=== PATIENT | female | born 1995 | race African-American/Black ===

== ENCOUNTER 2021-01-02 19:44 | Emergency (ER) | payer OTHER ==
[~2021-01-02] VITALS: Ht 154.9 cm; Wt 72.6 kg
--- NOTE | 2021-01-02 19:45 | NUR ---
Patient to ER bed ER Hallway to [facility] for evaluation. Side rails up.
--- NOTE | 2021-01-02 19:47 | NUR ---
Dr. Dutta chairside for pt eval
[2021-01-02 19:48] VITALS: BP_SYST 117
--- NOTE | 2021-01-02 19:51 | NUR ---
Pt BIB [employer] [facility] to ED seeking OK to book / med clearance. VSS no s/s of acute distress No other complaints noted Resting on ED Chair
[2021-01-02 20:10] VITALS: BP_SYST 117
--- NOTE | 2021-01-02 20:10 | NUR ---
Patient given written and verbal discharge instructions and verbalizes understanding. ER MD discussed with patient the results and treatment provided. Patient in stable condition. ID arm band removed. Patient educated on pain management and to follow up with PMD. Pain Scale 0/10 Opportunity for questions provided and answered.
== END 2021-01-02 20:10 ==
LOC: SED 19:44
DX: Z02.89 Encounter for other administrative examinations (principal); J45.909 Unspecified asthma, uncomplicated
CPT/HCPCS: 99283